=== PATIENT | female | born 1965 | race Hispanic/Latino ===

== ENCOUNTER → 2019-01-16 | Outpatient (CLI) | payer MEDICAID ==
[~2019-01-16] MED LIST: ACET-66 PO; HYDR-3422 PO; LITH450T16 PO; LURA120T PO; NAPR-1023 PO
== END | disposition home or self-care (01) ==
LOC: RAH 11:41
PROVIDERS: ATTEND Internal Medicine
DX: M54.9 Dorsalgia, unspecified (principal)
CPT/HCPCS: 72072

== ENCOUNTER → 2019-03-06 | Outpatient (CLI) | payer MEDICAID | END | disposition home or self-care (01) | LOC: RAH 12:26 | PROVIDERS: ATTEND Physical Medicine & Rehabilitation | DX: M47.22 Other spondylosis with radiculopathy, cervical region (principal) | CPT/HCPCS: 72052 ==

== ENCOUNTER → 2019-06-19 | Outpatient (CLI) | payer MEDICAID | END | disposition home or self-care (01) | LOC: RAH 09:44 | PROVIDERS: ATTEND Internal Medicine Rheumatology | DX: M19.042 Primary osteoarthritis, left hand (principal); M19.041 Primary osteoarthritis, right hand | CPT/HCPCS: 73130 ==

== ENCOUNTER 2019-08-16 09:41 | Emergency (ER) | payer MEDICAID ==
[2019-08-16 10:47] LABS: RAPID GROUP A STREP NEGATIVE (NEGATIVE)
== END 2019-08-16 13:06 | disposition home or self-care (01) ==
LOC: EDH 09:41
DX: J20.9 Acute bronchitis, unspecified (principal); R50.9 Fever, unspecified; F41.9 Anxiety disorder, unspecified; F32.9 Major depressive disorder, single episode, unspecified; E11.9 Type 2 diabetes mellitus without complications; Z90.49 Acquired absence of other specified parts of digestive tract; Z90.710 Acquired absence of both cervix and uterus
CPT/HCPCS: 71046; 87804; 87880

== ENCOUNTER → 2019-11-27 | Outpatient (CLI) | payer MEDICAID | END | disposition home or self-care (01) | LOC: RAH 11:53 | PROVIDERS: ATTEND Physical Medicine & Rehabilitation | DX: M54.16 Radiculopathy, lumbar region (principal) | CPT/HCPCS: 72114 ==

== ENCOUNTER → 2020-04-01 | Outpatient (CLI) | payer MEDICAID | END | disposition home or self-care (01) | LOC: RAH 12:17 | PROVIDERS: ATTEND Physical Medicine & Rehabilitation | DX: M50.122 Cervical disc disorder at C5-C6 level with radiculopathy (principal); M50.123 Cervical disc disorder at C6-C7 level with radiculopathy | CPT/HCPCS: 72141 ==

== ENCOUNTER → 2020-05-16 | Outpatient (CLI) | payer MEDICAID | END | disposition home or self-care (01) | LOC: RAH 13:47 | PROVIDERS: ATTEND Physical Medicine & Rehabilitation | DX: M25.551 Pain in right hip (principal); M25.552 Pain in left hip | CPT/HCPCS: 73522 ==

== ENCOUNTER → 2020-12-04 | Outpatient (CLI) | payer MEDICAID | END | disposition home or self-care (01) | LOC: RAH 12:36 | PROVIDERS: ATTEND Physical Medicine & Rehabilitation | DX: M47.816 Spondylosis without myelopathy or radiculopathy, lumbar region (principal); D17.79 Benign lipomatous neoplasm of other sites | CPT/HCPCS: 72148 ==

== ENCOUNTER → 2020-12-13 | Outpatient (CLI) | payer MEDICAID | END | disposition home or self-care (01) | LOC: RAH 10:41 | PROVIDERS: ATTEND Physical Medicine & Rehabilitation | DX: M47.814 Spondylosis without myelopathy or radiculopathy, thoracic region (principal) | CPT/HCPCS: 72074 ==

== ENCOUNTER → 2024-10-24 | Outpatient (CLI) | payer MEDICAID ==
[~2024-10-24] MED LIST changes: -LITH450T16 PO; -NAPR-1023 PO; +NAPR-1194 PO; +[UNRECOGNIZED DRUG - CODE] PO
== END | disposition home or self-care (01) ==
LOC: LAB 13:59
PROVIDERS: ATTEND Internal Medicine Cardiovascular Disease
DX: E77.8 Other disorders of glycoprotein metabolism (principal)
CPT/HCPCS: 82043; 82570

== ENCOUNTER 2025-06-04 23:24 | Emergency (ER) | payer MEDICAID, OTHER ==
[~2025-06-04] VITALS: Ht 165.1 cm; Wt 112.5 kg
[2025-06-04 23:47] LABS: IMMATURE GRANULOCYTE ABSOLUTE 0.03 K/uL (0-1); NUCLEATED RED BLOOD CELLS 0.0 % (0.0-0.19); PLATELET COUNT (AUTO) 264 K/uL (130-400); RED BLOOD CELL COUNT(AUTO) 4.71 MIL/uL (4.00-5.50); RED CELL DISTRIBUTION WIDTH 12.6 % (11.0-15.5); WHITE BLOOD COUNT (AUTO) 6.9 K/uL (4.8-10.8)
[2025-06-05 00:01] LABS: CREATININE 0.9 mg/dL (0.5-1.0); GLOMERULAR FILTR. RATE CALC 74.0 mL/min (>90); GLUCOSE,RANDOM 212.0 mg/dL (70-105); SODIUM SERUM 133.0 mmol/L (136-145); UREA NITROGEN, BLOOD 13.0 mg/dL (7-18)
--- NOTE | 2025-06-05 00:16 | HMCIMG ---
EXAM: CR Chest, 1 View. CLINICAL HISTORY: Chest pain. COMPARISON: None provided. FINDINGS: LUNGS: The lungs show no infiltrate or other acute finding. PLEURAL SPACES: No evidence of pleural effusion or pneumothorax. MEDIASTINUM: The cardiomediastinal silhouette is within normal limits. BONES: No acute osseous abnormality. IMPRESSION: No acute cardiopulmonary pathology is evident. /[place]
[2025-06-05] MEDS ORDERED: NITROGLYCERIN 0.4 MG SL TAB SL PRN (00:30)
[2025-06-05] MEDS: FAMOTIDINE 20MG TAB PO ONE (00:34)
[2025-06-05] MEDS: ASPIRIN 81MG CHEW TAB PO ONE (00:34)
--- NOTE | 2025-06-05 00:50 | ERN ---
ED Note History of Present Illness Stated Complaint: C/O CP WITH HIGH B/P Chief Complaint: Chest Pain Time Seen by MD: 23:39 Dictation: This is a 59-year-old female who presented to the emergency room complaining of midsternal chest pain that started a couple hours after her dinner. She stated that there is no radiation to arms shoulders neck. She reports severe heartburn for the past few days. She has no history of any coronary artery disease. She had a cardiac calcium score CT in December 2024. She denied any nausea vomitings constipation or diarrhea. She denied any right upper quadrant abdominal pain. No history of any alcohol abuse. The pain occurred when the patient was trying to lay down. She did not get relief sitting up or leaning forward. Temperature 98.5 pulse 94 respirations 20 blood pressure 191/81 with a pulse oximetry of 99% on room air Her chronic medical problems include asthma, diabetes mellitus type 2, hypertension, hyperlipidemia, PTSD and bipolar disorder and obesity Allergies: Coded Allergies: No Known Drug Allergies (Unverified Allergy, Unknown, 04/11/15) Home Meds Reported Medications Naproxen (Naproxen) 500 Mg Tablet, 500 MG PO AD, TAB 04/11/15 Acetaminophen (Tylenol) 500 Mg Tab, 500 MG PO AD, TAB 04/11/15 Hydroxyzine HCl (Hydroxyzine HCl) 50 Mg Tablet, 50 MG PO TID, TAB 04/11/15 [place] Carbonate ([place] Carbonate) 450 Mg Tablet.er, 450 MG PO BID, TAB 04/11/15 Lurasidone HCl (Latuda) 120 Mg Tablet, 120 MG PO PM, TAB 04/11/15 Past Medical History Past Medical History: Asthma, Diabetes-Type II, Hypertension Additional Past Medical Hx: PTSD Surgical History: Hysterectomy, Cholecystectomy Family History: CAD (Father had a heart attack in 60s. Many paternal aunts had coronary artery disease), Negative Social History: Negative History: Not Applicable RN Note Reviewed/Agreed w/PFSH: Yes Review of System Dictation Constitutional: Negative for fever,chills, and weight loss Eyes: Negative for injury, pain,redness, and discharge ENT: Negative for injury,pain or swelling Cardiovascular: Positive for midsternal chest pain, denied palpitations, and e kandy Respiratory: Negative for shortness of breath, cough, and wheezing, Abdomen/GI: Negative for abdominal pain, nausea, vomiting, diarrhea, and constipation positive for heartburn Back: Negative for injury and pain : Negative for injury, bleeding and discharge MS/Extremity: Negative for injury and deformity Skin: Negative for rash, and discoloration Neuro: Negative for headache, weakness, numbness, tingling, and seizure Psych: Negative for suicide ideation, homicidal ideation, and hallucinations Initial Vital Sign VS Vital Signs Date Time Temp Pulse Resp B/P (MAP) Pulse Ox O2 Delivery O2 Flow Rate FiO2 06/04/25 23:25 98.4 94 20 191/81 99 Room Air 06/05/25 00:22 0 21 Physical Exam Dictation General: awake, alert, NAD morbidly obese Head/Face: Normocephalic, atraumatic Eyes: PERRL, EOMI, vision at baseline ENT: oral cavity clear, TMs clear, no signs of infection Neck: Trachea midline, supple, no nuchal rigidity Cardiovascular: RRR, normal S1/S2, No MRGs, no JVD Respiratory: CTAB, no respiratory distress, No rales or wheezes Abdomen: Soft, non-tender, non-distended, normal bowel sounds, no guarding or rebound. Skin: Warm, dry, normal turgor, no rash MS/Extremity: Pulses equal, no cyanosis, neurovascular intact, FROM Neuro: COAx4, GCS 15, strength 5/5, CN 2-12 intact, normal cerebellar exam, normal gait, Psych: Normal behavior, mood, and affect normal Extremities-trace edema without any palpable cords, Homans sign is negative Results (Laboratory/Radiology) Laboratory/Radiology Laboratory Tests Test 06/04/25 23:40 White Blood Count 6.9 K/uL (4.8-10.8) Red Blood Count 4.71 MIL/uL (4.00-5.50) Hemoglobin 13.5 g/dL (12.0-16.0) Hematocrit 40.0 % (36-48) Mean Corpuscular Volume 84.9 fL (79-99) Mean Corpuscular Hemoglobin 28.7 pg (27.0-33.0) Mean Corpuscular Hemoglobin Concent 33.8 g/dL (32.0-36.0) Red Cell Distribution Width 12.6 % (11.0-15.5) Platelet Count 264 K/uL (130-400) Mean Platelet Volume 9.8 fL (7.5-10.5) Immature Granulocyte % (Auto) 0.4 % (0-1) Neutrophils (%) (Auto) 38.8 % (40.0-77.0) L Lymphocytes (%) (Auto) 48.8 % (21.0-51.0) Monocytes (%) (Auto) 8.6 % (3.0-13.0) Eosinophils (%) (Auto) 2.5 % (0.0-8.0) Basophils (%) (Auto) 0.9 % (0.0-5.0) Neutrophils # (Auto) 2.7 K/uL (1.8-7.7) Lymphocytes # (Auto) 3.3 K/uL (1.0-4.8) Monocytes # (Auto) 0.6 K/uL (0.1-1.0) Eosinophils # (Auto) 0.17 K/uL (0.00-0.70) Basophils # (Auto) 0.06 K/uL (0.00-0.20) Absolute Immature Granulocyte (auto 0.03 K/uL (0-1) Nucleated Red Blood Cells 0.0 % (0.0-0.19) Sodium Level 133 mmol/L (136-145) L Potassium Level 4.1 mmol/L (3.5-5.1) Chloride Level 98 mmol/L (101-111) L Carbon Dioxide Level 25 mmol/L (21-32) Blood Urea Nitrogen 13 mg/dL (7-18) Creatinine 0.9 mg/dL (0.5-1.0) Glomerular Filtration Rate Calc 74 mL/min (>90) Random Glucose 212 mg/dL (70-105) H Total Calcium 8.8 mg/dL (8.5-10.1) Troponin I High Sensitivity < 4 ng/L (4-50) L Labs Reviewed?: Yes CT Scan Comment: REASON: HEART SAVER ORDERING PHYSICIAN: SHELDON TUBBS MD PROCEDURE: HEARTSAVER - CT HEART SAVER PROMOTIONAL CT HEART SAVER PROMOTIONAL HISTORY: Calcium scoring COMPARISON: None TECHNIQUE: Computed tomography of the heart was performed with ECG gating and suspended respiration. Postprocessing was performed on a computer workstation to obtain diastolic phase images, determine calcium score and provide a quantitative assessment of extent of disease. This CT included only the heart. HeartSaver score is 0.0. Please see cardiac calcium score report. The available CT chest images show no acute finding. CT was performed with one or more following dose reduction techniques: automated exposure control, adjustment of the mA and kv according to patient's size, or use of a iterative reconstruction technique. DICTATED BY: RANI EDMONDSON MD DATE: 01/05/25 1334 ELECTRONICALLY SIGNED BY: RANI EDMONDSON MD DATE: 01/09/25 1631 ED Course ED Course Orders Procedure Category Date Status Time Cbc With Differential LAB 06/04/25 Complete 23:27 Basic Metabolic Panel LAB 06/04/25 Complete 23:27 Troponin I High LAB 06/04/25 Complete Sensitivity 23:27 Chest 1vw RAD 06/04/25 Resulted 23:28 12 Lead Ekg Tracing- EKG 06/04/25 Logged Technical 23:28 Aspirin 81mg Chew Tab PHA 06/05/25 Complete (Aspirin 81mg Chew 00:30 Nitroglycerin 0.4mg PHA 06/05/25 In Process Sl Tab (Nitrostat) 00:30 Morphine 4mg Syg PHA 06/05/25 Complete (Morphine 4mg Syg) 00:30 Ondansetron 4mg Inj PHA 06/05/25 Complete (Zofran 4mg Inj) 00:30 Famotidine 20mg Tab PHA 06/05/25 Complete (Pepcid 20mg Tab) 00:30 Current Medications Medications (Trade) Dose Ordered Sig/Maria Del Rosario Route PRN Reason Start Time Stop Time Status Last Admin Dose Admin Aspirin (Aspirin 81mg Chew Tab) 81 mg ONCE ONCE PO 06/05/25 00:30 06/05/25 00:31 DC 06/05/25 00:34 Famotidine (Pepcid 20mg Tab) 40 mg ONCE ONCE PO 06/05/25 00:30 06/05/25 00:31 DC 06/05/25 00:34 Morphine Sulfate (morPHINE 4MG SYG) 4 mg ONCE ONCE IVP 06/05/25 00:30 06/05/25 00:31 DC 06/05/25 00:35 Nitroglycerin (Nitrostat) 0.4 mg Q5M PRN SL CHEST PAIN 06/05/25 00:30 Ondansetron HCl (zoFRAN 4MG INJ) 4 mg ONCE ONCE IVP 06/05/25 00:30 06/05/25 00:31 DC 06/05/25 00:33 Vital Signs Date Time Temp Pulse Resp B/P (MAP) Pulse Ox O2 Delivery O2 Flow Rate FiO2 06/05/25 00:22 98.4 86 18 130/66 98 Room Air* 0 21 06/04/25 23:25 98.4 94 20 191/81 99 Room Air We will perform diagnostic labs,imaging and administer medications according to the patient's complaint. Once the results are available, will review and personally interpreted the labs to rule out any acute life-threatening emergency the trach require immediate intervention and treatment. I will then re-evaluate the patient after treatment and diagnostic exams have return to determine whether the patient requires any further testing, can safely be discharged home or need further admission to hospital for additional treatment and evaluation. HEART Score Response (Comments) Value History: Moderate suspicion (+1) 1 EKG: Repolarization changes 1 Age: 45-65yrs (+1) 1 Risk Factors: 3+ risk factors (+2) 2 Initial Troponin: Normal limit (0) 0 HEART Score Risk: Mod Risk for MACE (4-6) Total 5 Medical Decision Making MDM Differential diagnosis: Esophagitis, gastroesophageal reflux disease, hiatal hernia, gastritis, pericarditis, costochondritis, pleurisy This is a 59-year-old female who presented to the emergency room complaining of midsternal chest pain that started a couple hours after her dinner. She stated that there is no radiation to arms shoulders neck. She reports severe heartburn for the past few days. She has no history of any coronary artery disease. She had a cardiac calcium score CT in December 2024. She denied any nausea vomitings constipation or diarrhea. She denied any right upper quadrant abdominal pain. No history of any alcohol abuse. The pain occurred when the patient was trying to lay down. She did not get relief sitting up or leaning forward. Temperature 98.5 pulse 94 respirations 20 blood pressure 191/81 with a pulse oximetry of 99% on room air Her chronic medical problems include asthma, diabetes mellitus type 2, hypertension, hyperlipidemia, PTSD and bipolar disorder and obesity 11:45 p.m. labs reviewed chest x-ray mild cardiomegaly but no new changes or infiltrates noted compared to old chest x-ray. No evidence of any pleural effusions or pneumothorax. 12:00 a.m. CBC with a normal limits BNP 7 is still pending 12:50 a.m. BNP 7 is with a normal limits glucose of 212 troponins less than 4. Patient responded to symptomatic treatment and an H2 jazmín. I updated the patient and her sister that the clinical index of suspicion for a cardiac etiology is extremely low despite risk factors with a recently negative cardiac CT testing. I explained to both of them that this maybe perhaps related to gastroesophageal reflux as well as likely hiatal hernia and discussed GERD precautions extensively. They verbalized full understanding I have also stressed diligent compliance with medications and possibly consider a sleep study as outpatient due to body habitus and uncontrolled high blood pressure. Rationale: Tests considered and ordered secondary to shared decision making include: Tests t EKG and radiology Previous outside records reviewed: Old ER visits. Risk of complication and/or morbidity or mortality of patient management: None Medications-Per medication reconciliation Need for hospitalization: Patient does not meet criteria for hospitalization. Need for emergency major/minor surgery: No There are no social concerns with this patient. Prescription drug management Prescriptions will include symptomatic care Patient's prior external medical records from other ER visits were reviewed by me as indicated. Prior testing and results from previous visits were reviewed. Prior tests were taken into account with medical decision making and resource utilization, independent historian/historians were used to obtain complete medical history. I independently interpreted the test that were performed, results were reviewed by me and considered findings on radiology if ordered. Medical management and examination interpretation discussions were had by me with other qualified healthcare professionals as indicated for the patient's care. DX & DISP Disposition: Discharge Departure Impression: Primary Impression: Atypical chest pain Additional Impressions: Gastroesophageal reflux disease, Uncontrolled diabetes mellitus with hyperglycemia, Uncontrolled hypertension Condition: Stable Additional Instructions: Patient and the caregiver have been informed of all the diagnostic tests and the imaging conducted during the today's visit to the emergency room and has verbalized understanding of the results I have personally reviewed and interpreted all diagnostic exams performed here in the ER today as well as the vital signs documented by the nursing staff. The patient is now being discharged to home and should follow up with the primary care physician or the specialist as directed by the ER staff. Extensive counseling done on 3 sleep hygiene discussed avoidance of benzodiazepines and other sleep aids that would suppress respirations. The importance of compliance with PAP therapy and benefits of improved sleep consolidation quality of sleep, reducing the risks of stroke cardiac disease and comorbidities. Negative consequences also discussed. 4. Weight loss diet and exercise stressed and education done. 5. GERD precautions-elevation of the head of the bed, avoidance of citrus spicy beverages and caffeine, not eat late at night and not lay supine immediately after eating. 7. Regular followups. Referrals: IRVING GARCIA MD (PCP) KIAN FARRAR MD Jun 05, 2025 00:50
[2025-06-05 01:53] VITALS: BP 125/65; PULSE 85; RESP 20; TEMP 98.4; O2SAT 99
--- NOTE | 2025-06-05 05:57 | EKG ---
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
== END 2025-06-05 01:54 | disposition home or self-care (01) ==
LOC: EDH 23:24
DX: K21.9 Gastro-esophageal reflux disease without esophagitis (principal); R07.2 Precordial pain; E11.65 Type 2 diabetes mellitus with hyperglycemia; I10 Essential (primary) hypertension; J45.909 Unspecified asthma, uncomplicated; Z79.899 Other long term (current) drug therapy; Z90.710 Acquired absence of both cervix and uterus; Z90.49 Acquired absence of other specified parts of digestive tract
CPT/HCPCS: 99285; 71045; 84484; 80048; 85025; 36415; 93005; 96374; 96375; J2405; J2270